=== PATIENT | female | born 1995 | race African-American/Black ===

== ENCOUNTER 2024-01-25 07:32 | Emergency (ER) | payer OTHER ==
[~2024-01-25] VITALS: Ht 162.6 cm; Wt 58.8 kg
[2024-01-25 08:06] LABS: URINE PREG TEST NEGATIVE (NEGATIVE)
[2024-01-25 09:38] LABS: Trichomonas vaginalis (AMP) NOT DETECTED (NEGATIVE)
[2024-01-25 10:01] LABS: GC DNA AMPLIFICATION NEGATIVE (NEGATIVE)
[2024-01-25] MEDS ORDERED: SULF1TAB23 PO (11:01)
[2024-01-25 11:25] VITALS: BP 112/82; TEMP 98.7; O2SAT 100
== END 2024-01-25 11:36 | disposition home or self-care (01) ==
LOC: M ED 07:32
DX: N30.00 Acute cystitis without hematuria (principal); Z79.2 Long term (current) use of antibiotics

== ENCOUNTER 2024-10-19 15:45 | Emergency (ER) | payer OTHER ==
[~2024-10-19] VITALS: Ht 165.1 cm; Wt 59.7 kg
[~2024-10-19 15:45] MED LIST: SULF1TAB23 PO
[2024-10-19 17:05] LABS: BASO % 0.5 % (0.0-1.0); EOS # 0.1 10^3/uL (0.0-0.5); HEMATOCRIT 38.8 % (36.0-47.0); HEMOGLOBIN 13.4 g/dl (12.0-15.5); LYMPH # 1.9 10^3/uL (1.5-5.0); LYMPH % 30.7 % (24.0-44.0); MEAN CORPUSCULAR HEMOGLOBIN 32.4 pg (27.0-33.0); MEAN CORPUSCULAR HGB CONC 34.5 g/dl (32.0-36.5); MEAN CORPUSCULAR VOLUME 93.7 fl (80.0-96.0); MONO # 0.4 10^3/uL (0.0-0.8); MONO % 6.9 % (2.0-8.0); NEUTROPHILS # 3.7 10^3/uL (1.5-8.5); NEUTROPHILS % 60.7 % (36.0-66.0); PLATELET COUNT, AUTOMATED 300 10^3/uL (150-450); RED BLOOD COUNT 4.14 10^6/uL (4.00-5.40); WHITE BLOOD COUNT 6.1 10^3/uL (4.0-10.0)
[2024-10-19 17:20] LABS: KETONE, URINE AUTO RFX TRACE mg/dL (NEGATIVE); MUCUS, URINE RFX SMALL (NEGATIVE); NITRITE, URINE AUTO RFX NEGATIVE (NEGATIVE); RBC, URINE AUTO RFX 3 /HPF (0-3); SQUAM EPITHELIAL CELL UR AURFX 8 /HPF (0-6); WBC, URINE AUTO RFX 6 /HPF (0-3)
[2024-10-19 17:34] LABS: ALBUMIN 4.2 G/DL (3.2-5.2); ALKALINE PHOSPHATASE 53 U/L (35-104); ALT/SGPT 10 U/L (7.0-40); AST/SGOT 10 U/L (<34); BILIRUBIN,TOTAL 0.9 MG/DL (0.3-1.2); BLOOD UREA NITROGEN 7 MG/DL (9-23); CALCIUM LEVEL 9.1 MG/DL (8.5-10.1); CARBON DIOXIDE LEVEL 27 MMOL/L (20-31); CHLORIDE LEVEL 105 MMOL/L (98-107); CREATININE FOR GFR 0.61 MG/DL (0.55-1.30); GLOMERULAR FILTRATION RATE > 90.0 (>60); GLUCOSE, FASTING 89 MG/DL (60-100); POTASSIUM SERUM 3.8 MMOL/L (3.5-5.1); SODIUM LEVEL 140 MMOL/L (136-145); TOTAL PROTEIN 6.7 G/DL (5.7-8.2)
[2024-10-19 17:37] LABS: HCG, SERUM QUALITATIVE NEGATIVE (NEGATIVE)
[2024-10-19 17:42] LABS: LEUKOCYTE ESTERASE UR AUTO RFX 2+ (NEGATIVE)
[2024-10-19] MEDS ORDERED: SIME1CAP4 PO (20:02)
[2024-10-19] MEDS ORDERED: MIRA3350 PO (20:02)
[2024-10-19 20:19] VITALS: BP 121/98; TEMP 97.2; O2SAT 96
== END 2024-10-19 20:22 | disposition home or self-care (01) ==
LOC: M ED 15:45
DX: R10.9 Unspecified abdominal pain (principal); R14.0 Abdominal distension (gaseous); Z79.899 Other long term (current) drug therapy